=== PATIENT | female | born 1970 | race Caucasian/White ===

== ENCOUNTER 2018-01-13 08:11 | Day surgery (SDC) | payer OTHER ==
[~2018-01-13] VITALS: Ht 154.9 cm; Wt 78.0 kg
[~2018-01-13 08:11] MED LIST: ALLEGRA60 MG PO; BIOTIN5000 MCG PO; FLEXERIL10 MG PO; MELATONIN5 M1 PO; OCELLA TABLET1 EACH PO; TRAMADOL HCL50 MG PO; VITAMIN B COMP1 EACH PO
[2018-01-13 08:32] VITALS: BP 159/86
[2018-01-13 18:35] VITALS: BP 171/89
[2018-01-13 23:30] VITALS: BP 170/75
[2018-01-14 04:30] VITALS: BP 174/72
[2018-01-14 07:00] VITALS: BP 138/80
[2018-01-14 12:17] VITALS: BP 163/84
[2018-01-14 15:30] VITALS: BP 156/88
== END 2018-01-14 17:57 | disposition home or self-care (01) ==
LOC: SDC 08:11 → NUC 10:00 → SDC 10:00 → 2EAST 15:48 → ENRESERV 16:57 → 2EAST 01-14 17:57
PROC: 0HUT0JZ Supplement Right Breast with Synthetic Substitute, Open Approach (ICD-10-PCS; principal; 2018-01-13)
PROC: 07B50ZX Excision of Right Axillary Lymphatic, Open Approach, Diagnostic (ICD-10-PCS; principal; 2018-01-13)
PROC: 0HBT0ZZ Excision of Right Breast, Open Approach (ICD-10-PCS; principal; 2018-01-13)
PROC: 0HHT0NZ Insertion of Tissue Expander into Right Breast, Open Approach (ICD-10-PCS; principal; 2018-01-13)
DX: C50.911 Malignant neoplasm of unspecified site of right female breast (principal); E78.00 Pure hypercholesterolemia, unspecified; E66.9 Obesity, unspecified; Z68.32 Body mass index [BMI] 32.0-32.9, adult; Z87.891 Personal history of nicotine dependence; Z88.0 Allergy status to penicillin; Z91.040 Latex allergy status
CPT/HCPCS: 78195; 78999; 84702; 88305; 88307; A9541; G0378; J0131; J1100; J1170; J2250; J3010; S0020